=== PATIENT | female | born 1960 | race Hispanic/Latino ===

== ENCOUNTER 2017-09-07 14:32 | Emergency (ER) | payer OTHER ==
[2017-09-07] MEDS ORDERED: ONDANSETRON HCL 4 MG/2 ML VIAL ONE (15:07)
[2017-09-07] MEDS ORDERED: SODIUM CHLORIDE 0.9% 1000ML 1,000 ML IV ONE (15:07)
[2017-09-07 15:42] LABS: BASOPHILS % (AUTO) 0.9 % (0.0-5.0); EOSINOPHILS % (AUTO) 0.3 % (0.0-8.0); HEMATOCRIT 41.7 % (36-48); LYMPHOCYTES % (AUTO) 21.4 % (21.0-51.0); MEAN CORPUSCULAR HEMOGLOBIN 29.6 pg (27.0-33.0); MEAN CORPUSCULAR HGB CONC 34.4 g/dL (32.0-36.0); MEAN CORPUSCULAR VOLUME 86.2 fL (79-99); MONOCYTES % (AUTO) 10.3 % (3.0-13.0); NEUTROPHILS % (AUTO) 67.1 % (40.0-77.0); NUCLEATED RED BLOOD CELLS 0.1 % (0.0-0.19); PLATELET COUNT (AUTO) 175 K/uL (130-400); RED BLOOD CELL COUNT(AUTO) 4.84 MIL/uL (4.00-5.50); RED CELL DISTRIBUTION WIDTH 13.5 % (11.0-15.5); WHITE BLOOD COUNT (AUTO) 5.8 K/uL (4.8-10.8)
[2017-09-07 15:51] LABS: CREATININE 0.9 mg/dL (0.5-1.5); POTASSIUM 3.7 mmol/L (3.5-5.1)
[2017-09-07] MEDS ORDERED: OSELTAMIVIR PHOSPHATE 75 MG CAP ONE (16:17)
[2018-01-31] MEDS ORDERED: ARTHRITIS TYLENOL (16:12)
== END 2017-09-07 16:43 | disposition home or self-care (01) ==
LOC: EDH 14:32
DX: J10.1 Influenza due to other identified influenza virus with other respiratory manifestations (principal); R50.81 Fever presenting with conditions classified elsewhere; R11.2 Nausea with vomiting, unspecified
CPT/HCPCS: 36415; 80048; 85025; 87804 ×2; 96374; 99284; J2405; J7030

== ENCOUNTER 2017-10-17 12:40 | Emergency (ER) | payer OTHER ==
[2018-01-31] MEDS ORDERED: ARTHRITIS TYLENOL (16:12)
== END 2017-10-17 14:38 | disposition home or self-care (01) ==
LOC: EDH 12:40
DX: S80.01XA Contusion of right knee, initial encounter (principal); Z98.890 Other specified postprocedural states; Z87.891 Personal history of nicotine dependence; W01.0XXA Fall on same level from slipping, tripping and stumbling without subsequent striking against object, initial encounter; Y93.01 Activity, walking, marching and hiking; Y92.89 Other specified places as the place of occurrence of the external cause; Y99.8 Other external cause status
CPT/HCPCS: 73562

== ENCOUNTER → 2018-01-17 | Outpatient (CLI) | payer OTHER ==
[~2018-01-17] VITALS: Ht 142.2 cm; Wt 90.7 kg
[~2018-01-17] MED LIST: ARTHRITIS TYLENOL; ASPI-1012 PO; HYDR-309 PO; REGADENOSON 0.4 MG/5 ML PF SYG IVP SCH
== END | disposition home or self-care (01) ==
LOC: SHCH 08:57
PROVIDERS: ATTEND Internal Medicine Cardiovascular Disease
DX: R06.00 Dyspnea, unspecified (principal); F41.9 Anxiety disorder, unspecified
CPT/HCPCS: 78452; 93017; 96374; A9500 ×2; J2785

== ENCOUNTER 2018-02-03 10:29 | Inpatient (IN) | payer OTHER ==
[2018-01-31 15:13] VITALS: BP 186/98
[2018-01-31 15:45] LABS: APPEARANCE,URINE Cloudy (CLEAR); BILIRUBIN,URINE Small (NEGATIVE); COLOR,URINE Dark Yellow (YELLOW); GLUCOSE, URINE (UA) Negative (NEGATIVE); KETONES,URINE Negative (NEGATIVE); LEUKOCYTE ESTERASE ,URINE Negative (NEGATIVE); NITRATE,URINE Negative (NEGATIVE); OCCULT BLOOD,URINE Negative (NEGATIVE); PROTEIN,URINE Trace (NEGATIVE)
[2018-01-31 15:45] LABS: EOSINOPHILS % (AUTO) 2.1 % (0.0-8.0); HEMATOCRIT 41.7 % (36-48); LYMPHOCYTES % (AUTO) 26.9 % (21.0-51.0); MEAN CORPUSCULAR HEMOGLOBIN 29.5 pg (27.0-33.0); MEAN CORPUSCULAR HGB CONC 34.1 g/dL (32.0-36.0); MEAN CORPUSCULAR VOLUME 86.6 fL (79-99); PLATELET COUNT (AUTO) 211 K/uL (130-400); RED BLOOD CELL COUNT(AUTO) 4.82 MIL/uL (4.00-5.50); RED CELL DISTRIBUTION WIDTH 13.3 % (11.0-15.5); WHITE BLOOD COUNT (AUTO) 7.7 K/uL (4.8-10.8)
[2018-01-31 15:53] LABS: CREATININE 0.8 mg/dL (0.5-1.5); POTASSIUM 4.2 mmol/L (3.5-5.1)
[2018-01-31 15:55] LABS: BACTERIA,URINE Few /HPF (None Seen); MUCUS,URINE Few LPF (None Seen); RBC,URINE None Seen /HPF (0-1); WBC,URINE 0-1 /HPF (0-1)
[2018-01-31 16:21] LABS: INR 1.02 (0.85-1.15); PARTIAL THROMBOPLASTIN TIME 26.9 SEC (26.3-35.5); PROTHROMBIN TIME 10.7 SEC (9.6-11.6)
[2018-01-31] MEDS: CEFAZOLIN SODIUM 1 GM VIAL IVP SCH (17:00)
[~2018-02-03] VITALS: Ht 147.3 cm; Wt 91.7 kg
[2018-02-03] VITALS (20 sets, daily range): BP systolic 116–189; BP diastolic 64–105
[~2018-02-03 10:29] MED LIST changes: -ASPI-1012 PO; -HYDR-309 PO; -REGADENOSON 0.4 MG/5 ML PF SYG IVP SCH
[2018-02-03] MEDS ORDERED: LACTATED RINGERS 1000ML 1,000 ML IV ONE (10:53)
[2018-02-03] MEDS ORDERED: EPINEPHRINE 1 MG/ML AMPULE ONE (13:13)
[2018-02-03] MEDS ORDERED: BUPIVACAINE/PF 0.25% 30ML VIAL IJ ONE (13:13)
[2018-02-03] MEDS ORDERED: CEFAZOLIN SODIUM 1 GM VIAL ONE (13:13)
[2018-02-03] MEDS ORDERED: TRANEXAMIC ACID 1000MG/10ML IV ONE (13:14)
[2018-02-03] MEDS ORDERED: METOCLOPRAMIDE 10 MG/2 ML VIAL ONE (13:57)
[2018-02-03] MEDS ORDERED: CELECOXIB 200 MG CAP ONE (13:58)
[2018-02-03] MEDS ORDERED: ACETAMINOPHEN EXTRA STRENGTH 500 MG TABLET ONE (13:58)
[2018-02-03] MEDS ORDERED: OXYCODONE HCL 10 MG TAB.SR.12H PO ONE (13:58)
[2018-02-03] MEDS ORDERED: KETOROLAC TROMETHAMINE 15MG/ML ONE (13:58)
[2018-02-03] MEDS ORDERED: MIDAZOLAM HCL 1 MG/ML 2ML VIAL ONE (14:41)
[2018-02-03] MEDS ORDERED: ONDANSETRON HCL 4 MG/2 ML VIAL ONE (14:41)
[2018-02-03] MEDS ORDERED: NEOSTIGMINE 5MG/5ML SYR IV ONE (14:41)
[2018-02-03] MEDS ORDERED: PROPOFOL 10 MG/ML 20ML VIAL IV ONE (14:41)
[2018-02-03] MEDS ORDERED: DEXAMETHASONE SOD PHOSPHATE 10MG/ML 1ML VIAL ONE (14:41)
[2018-02-03] MEDS ORDERED: LIDOCAINE PF 2% 5ML ABBOJECT ONE (14:41)
[2018-02-03] MEDS ORDERED: GLYCOPYRROLATE 0.2 MG/ML 5 ML VIAL ONE (14:41)
[2018-02-03] MEDS ORDERED: FENTANYL CITRATE PF 50 MCG/1 ML 2ML VIAL ONE (14:42)
[2018-02-03] MEDS ORDERED: ROCURONIUM BROMIDE 10MG/1ML 5ML VL ONE (14:46)
[2018-02-03] MEDS: CEFAZOLIN SODIUM 1 GM VIAL IVP SCH ×2 (15:20→21:59)
[2018-02-03] MEDS ORDERED: FENTANYL CITRATE PF 50 MCG/1 ML 5ML AMP IV ONE (15:36)
[2018-02-03] MEDS ORDERED: METOPROLOL TARTRATE 1 MG/ML 5ML VIAL IV ONE (16:05)
[2018-02-03] MEDS ORDERED: OXYCODONE HCL 5 MG TAB PO PRN (17:00)
[2018-02-03] MEDS ORDERED: FERROUS FUMARATE 324 MG TABLET PO PRN (17:00)
[2018-02-03] MEDS ORDERED: CALCIUM CARBONATE 500 MG TABLET PO PRN (17:00)
[2018-02-03] MEDS ORDERED: POTASSIUM CHLORIDE 20 MEQ ERTAB PO PRN (17:00)
[2018-02-03] MEDS ORDERED: POTASSIUM CHLORIDE 10% ELIXIR 20 MEQ/15 ML UDCUP PO PRN (17:00)
[2018-02-03] MEDS ORDERED: POTASSIUM CHLORIDE 20MEQ/100ML 100 ML IV PRN (17:00)
[2018-02-03] MEDS ORDERED: KETOROLAC TROMETHAMINE 15MG/ML IV PRN (17:00)
[2018-02-03] MEDS ORDERED: ONDANSETRON HCL 4 MG/2 ML VIAL IVP PRN (17:00)
[2018-02-03] MEDS ORDERED: TEMAZEPAM 15 MG CAPSULE PO PRN (17:00)
[2018-02-03] MEDS ORDERED: LIDOCAINE HCL-MPF 1% 2ML VIAL IVP PRN (17:00)
[2018-02-03] MEDS ORDERED: TRAMADOL HCL 50 MG TABLET PO PRN (17:00)
[2018-02-03] MEDS ORDERED: DiphenhydrAMINE HCL 50 MG/ML VIAL IVP PRN (17:00)
[2018-02-03] MEDS ORDERED: HYDRALAZINE HCL 20 MG/ML VIAL ONE (17:33)
[2018-02-03] MEDS: PREGABALIN 25 MG CAP PO SCH (19:38)
[2018-02-03] MEDS: FAMOTIDINE 20MG TAB 20 MG TAB PO SCH (19:38)
[2018-02-03] MEDS: ACETAMINOPHEN EXTRA STRENGTH 500 MG TABLET PO SCH (19:38)
[2018-02-03] MEDS: CELECOXIB 200 MG CAP PO SCH (19:38)
[2018-02-03] MEDS: ASPIRIN 325 MG TABLET PO SCH (19:38)
[2018-02-03] MEDS: SODIUM CHLORIDE 0.9% 1000ML 1,000 ML IV SCH (19:51)
[2018-02-03] MEDS ORDERED: CEFAZOLIN 2GM / 50 ML 50 ML IV SCH (22:00)
[2018-02-04] VITALS: BP 143/86
[2018-02-04] MEDS: ACETAMINOPHEN EXTRA STRENGTH 500 MG TABLET PO SCH ×3 (01:00→17:03)
[2018-02-04] MEDS: SODIUM CHLORIDE 0.9% 1000ML 1,000 ML IV SCH ×2 (02:04→12:52)
[2018-02-04 04:01] VITALS: BP 186/92
[2018-02-04 05:06] LABS: HEMATOCRIT 37.5 % (36-48); MEAN CORPUSCULAR HEMOGLOBIN 29.5 pg (27.0-33.0); MEAN CORPUSCULAR HGB CONC 34.1 g/dL (32.0-36.0); MEAN CORPUSCULAR VOLUME 86.5 fL (79-99); PLATELET COUNT (AUTO) 203 K/uL (130-400); RED BLOOD CELL COUNT(AUTO) 4.34 MIL/uL (4.00-5.50); RED CELL DISTRIBUTION WIDTH 13.4 % (11.0-15.5); WHITE BLOOD COUNT (AUTO) 17.9 K/uL (4.8-10.8)
[2018-02-04] MEDS: CEFAZOLIN SODIUM 1 GM VIAL IVP SCH (05:13)
[2018-02-04 05:18] LABS: CREATININE 0.8 mg/dL (0.5-1.5); POTASSIUM 4.4 mmol/L (3.5-5.1)
[2018-02-04] MEDS: OXYCODONE HCL 5 MG TAB PO PRN ×3 (08:00→15:08)
[2018-02-04 08:01] VITALS: BP 185/79
[2018-02-04] MEDS: PREGABALIN 25 MG CAP PO SCH ×2 (08:08→19:26)
[2018-02-04] MEDS: FAMOTIDINE 20MG TAB 20 MG TAB PO SCH ×2 (08:09→19:26)
[2018-02-04] MEDS: CELECOXIB 200 MG CAP PO SCH ×2 (08:09→19:26)
[2018-02-04] MEDS: ASPIRIN 325 MG TABLET PO SCH ×2 (08:09→19:26)
[2018-02-04] MEDS: POLYETHYLENE GLYCOL 3350 17 GM POWD.PACK PO SCH (09:24)
[2018-02-04 12:22] VITALS: BP 158/87
[2018-02-04 16:36] VITALS: BP 151/74
[2018-02-04 20:03] VITALS: BP 148/77
[2018-02-05] MEDS: ACETAMINOPHEN EXTRA STRENGTH 500 MG TABLET PO SCH ×3 (00:12→17:04)
[2018-02-05 00:43] VITALS: BP 148/77
[2018-02-05 08:54] VITALS: BP 162/92
[2018-02-05] MEDS: ASPIRIN 325 MG TABLET PO SCH (09:00)
[2018-02-05] MEDS: POLYETHYLENE GLYCOL 3350 17 GM POWD.PACK PO SCH (09:00)
[2018-02-05] MEDS: PREGABALIN 25 MG CAP PO SCH (09:00)
[2018-02-05] MEDS: CELECOXIB 200 MG CAP PO SCH (09:00)
[2018-02-05] MEDS: FAMOTIDINE 20MG TAB 20 MG TAB PO SCH (09:00)
[2018-02-05 10:59] VITALS: BP 160/80
[2018-02-05 15:48] VITALS: BP 169/81
[2018-02-05] MEDS ORDERED: HYDR-309 PO (18:39)
[2018-02-05] MEDS ORDERED: ASPI-1012 PO (18:39)
[2018-02-06] MEDS ORDERED: BISACODYL 10 MG SUPP.RECT RC PRN (17:00)
== END 2018-02-05 19:25 | disposition home health service (06) | DRG 470 ==
LOC: DAHIP 10:29 → EDSTATUS 12:30 → 4AH 17:23
PROVIDERS: ADMIT Orthopaedic Surgery; ATTEND Orthopaedic Surgery
PROC: 0SRC0J9 Replacement of Right Knee Joint with Synthetic Substitute, Cemented, Open Approach (ICD-10-PCS; principal; 2018-02-03 14:55)
DX: M17.11 Unilateral primary osteoarthritis, right knee (principal); Z68.41 Body mass index [BMI] 40.0-44.9, adult; E66.01 Morbid (severe) obesity due to excess calories; G89.29 Other chronic pain
CPT/HCPCS: 36415; 80048; 81001; 85025; 85027; 85610; 85730; 88305; 88311; 96374; 96375; A4218; J0171; J0360; J0690; J1100; J1885; J2001; J2250; J2405; J2704; J2710; J2765; J3010; J3490; J7030; J7120

== ENCOUNTER 2021-02-15 22:55 | Emergency (ER) | payer OTHER ==
[~2021-02-15] VITALS: Ht 149.9 cm; Wt 86.6 kg
[~2021-02-15 22:55] MED LIST changes: +ASPI-1012 PO; +HYDR-4457 PO
[2021-02-15 23:48] VITALS: BP 150/102
[2021-02-16] MEDS ORDERED: MECLIZINE HCL 25 MG TABLET PO ONE (00:30)
[2021-02-16] MEDS ORDERED: ONDANSETRON ODT 4MG TAB SL ONE (00:30)
[2021-02-16 00:46] LABS: APPEARANCE,URINE Clear (CLEAR); BILIRUBIN,URINE Negative (NEGATIVE); COLOR,URINE Yellow (YELLOW); GLUCOSE, URINE (UA) Negative (NEGATIVE); KETONES,URINE Negative (NEGATIVE); LEUKOCYTE ESTERASE ,URINE Negative (NEGATIVE); NITRATE,URINE Negative (NEGATIVE); OCCULT BLOOD,URINE Nonhemolyzed Trace (NEGATIVE); PROTEIN,URINE POS 1+ mg/dL (NEGATIVE)
[2021-02-16 01:01] LABS: BACTERIA,URINE Rare /HPF (None Seen); SQUAMOUS EPITHELIAL CELL,UR 0-2 /HPF (0-2); WBC,URINE 0-1 /HPF (0-1)
[2021-02-16 01:38] LABS: BASOPHILS % (AUTO) 0.6 % (0.0-5.0); EOSINOPHILS % (AUTO) 0.6 % (0.0-8.0); HEMATOCRIT 43.8 % (36-48); LYMPHOCYTES % (AUTO) 9.2 % (21.0-51.0); MEAN CORPUSCULAR HEMOGLOBIN 29.2 pg (27.0-33.0); MEAN CORPUSCULAR VOLUME 91.4 fL (79-99); MONOCYTES % (AUTO) 5.9 % (3.0-13.0); NEUTROPHILS % (AUTO) 82.8 % (40.0-77.0); PLATELET COUNT (AUTO) 227 K/uL (130-400); RED BLOOD CELL COUNT(AUTO) 4.79 MIL/uL (4.00-5.50); RED CELL DISTRIBUTION WIDTH 14.3 % (11.0-15.5); WHITE BLOOD COUNT (AUTO) 19.7 K/uL (4.8-10.8)
[2021-02-16 01:54] LABS: CREATININE 1.1 mg/dL (0.5-1.5); POTASSIUM 4.2 mmol/L (3.5-5.1)
[2021-02-16 02:05] LABS: ALBUMIN 3.6 g/dL (3.5-5.0); BILIRUBIN,TOTAL 0.7 mg/dL (0.2-1.0); TOTAL PROTEIN, SERUM 7.2 g/dL (6.0-8.3)
[2021-02-16 02:46] VITALS: BP 180/83
[2021-02-16 03:51] VITALS: BP 148/72
[2021-02-16] MEDS ORDERED: ASPI-1005 PO (05:01)
[2021-02-16] MEDS ORDERED: MECL-226 PO (05:01)
[2021-02-16 05:04] VITALS: BP 141/76
== END 2021-02-16 05:12 | disposition home or self-care (01) ==
LOC: EDH 23:16
DX: H81.10 Benign paroxysmal vertigo, unspecified ear (principal); D72.829 Elevated white blood cell count, unspecified; R94.5 Abnormal results of liver function studies; Z79.82 Long term (current) use of aspirin; Z79.899 Other long term (current) drug therapy; Z98.890 Other specified postprocedural states
CPT/HCPCS: 36415; 70450; 80053; 81001; 82550; 83690; 84484; 85025; 93005

== ENCOUNTER 2025-04-03 08:25 | Emergency (ER) | payer OTHER ==
[~2025-04-03] VITALS: Ht 149.9 cm; Wt 90.7 kg
[~2025-04-03 08:25] MED LIST changes: +ASPI-1005 PO; +MECL-226 PO
[2025-04-03 08:36] VITALS: TEMP 97.9
--- NOTE | 2025-04-03 08:47 | EKG ---
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
[2025-04-03 09:02] LABS: IMMATURE GRANULOCYTE ABSOLUTE 0.28 K/uL (0-1); NUCLEATED RED BLOOD CELLS 0.0 % (0.0-0.19); PLATELET COUNT (AUTO) 210 K/uL (130-400); RED BLOOD CELL COUNT(AUTO) 4.18 MIL/uL (4.00-5.50); RED CELL DISTRIBUTION WIDTH 19.9 % (11.0-15.5); WHITE BLOOD COUNT (AUTO) 11.4 K/uL (4.8-10.8)
[2025-04-03 09:22] LABS: ASPARTATE AMINOTRANSFERASE 20.0 U/L (10-37); CREATINE KINASE, TOTAL 33.0 U/L (21-232); CREATININE 1.0 mg/dL (0.5-1.0); GLOMERULAR FILTR. RATE CALC 63.0 mL/min (>90); GLUCOSE,RANDOM 143.0 mg/dL (70-105); SODIUM SERUM 143.0 mmol/L (136-145); TOTAL PROTEIN, SERUM 6.3 g/dL (6.0-8.3); UREA NITROGEN, BLOOD 21.0 mg/dL (7-18)
[2025-04-03 09:57] VITALS: BP 167/77; PULSE 77; RESP 20; O2SAT 95
[2025-04-03 10:15] LABS: APPEARANCE,URINE TURBID (CLEAR); GLUCOSE, URINE (UA) NEGATIVE (NEGATIVE); LEUKOCYTE ESTERASE ,URINE 25 Leu/uL (NEGATIVE); NITRATE,URINE NEGATIVE (NEGATIVE); OCCULT BLOOD,URINE NEGATIVE (NEGATIVE)
[2025-04-03 10:20] LABS: ADD UA MICROSCOPIC YES
[2025-04-03 10:23] LABS: SQUAMOUS EPITHELIAL CELL,UR FEW /HPF (0-2)
--- NOTE | 2025-04-03 10:38 | HMCIMG ---
CHEST 1VW REASON: dyspnea COMPARISON: None. FINDINGS: Single view of the chest was obtained. Lungs are clear. There is cardiomegaly with left ventricular contour.. There is no pulmonary vascular congestion. Mediastinum and bony thorax appear unremarkable. IMPRESSION: 1. Cardiomegaly with left ventricular contour 2. No evidence of airspace consolidation or pulmonary venous congestion.
--- NOTE | 2025-04-03 10:42 | ERN ---
General Chief Complaint: Lower Extremity Pain/Injury Stated Complaint: SWELLING TO EXTREMITIES Time Seen by MD: 08:27 History of Present Illness Initial Comments 64F, hx HTN, DM, DLD, class III obesity, presents for 1 week of exertional dyspnea, fatigue, and swollen legs. Patient reports that she has been moving houses over the last week. She reports that while moving she gets very fatigued. She is unable to do more than a few boxes with a out getting dyspneic. She reports that her legs that is swollen up but the swelling has since resolved. She went to her PCP for further evaluation, she had lab work done, but she is not know the results. She presents today because she said she is frustrated that she is unable to get as much work done in his usual. She is able to sleep at night lying flat. She has no chest pains. No fevers. No other systemic complaints. Allergies: Coded Allergies: No Known Drug Allergies (Unverified Allergy, Unknown, 01/16/18) Home Meds Active Scripts Meclizine HCl (Meclizine HCl) 12.5 Mg Tablet, 25 MG PO TID PRN for DIZZINESS for 10 Days, #30 TAB Prov:KOSTA GONZALEZ MD 02/16/21 Aspirin (ASPIRIN 81MG CHEW TAB) 81 Mg Tab.chew, 81 MG PO DAILY for CIRCULATION for 30 Days, #30 TAB.CHEW Prov:KOSTA GONZALEZ MD 02/16/21 Hydrocodone/Acetaminophen ([place] 5-325 Tablet) 1 Each Tablet, 1-2 EACH PO Q6H PRN for PAIN, #90 TAB Prov:DAQUAN BATES MD 02/05/18 Aspirin (ASPIRIN) 325 Mg Tablet, 325 MG PO BID, #40 TAB Prov:DAQUAN BATES MD 02/05/18 Reported Medications [Arthritis Tylenol] No Conflict Check, 2 CAP AD PRN for PAIN LEVEL 1 TO 5 01/31/18 Past Medical History Past Medical History: No Pertinent History Past Surgical History: Other Surgical History Other: RT KNEE SURGERY Family History Family History: HTN Social History Social History: Lives with family ROS Dictation CONSTITUTIONAL: Fatigue HEAD/FACE: No signs of trauma. EENT: No eye pain, no blurred vision, no tearing, no double vision, no ear pain, no ear discharge, no nose pain, no nasal congestion, no throat pain, no throat swelling, no mouth pain. RESPIRATORY: No cough, no orthopnea, no SOB, no stridor, no wheezing. CARDIOVASCULAR: Dyspnea GASTROINTESTINAL/ABDOMINAL: No abdominal pain, no constipation, no diarrhea, no nausea, no vomiting. GENITOURINARY: No abnormal discharge, no dysuria, no frequent urination, no hematuria. No complaints of pain in the genitals. MUSCULOSKELETAL: No back pain, no gout, no joint pain, no joint swelling, no muscle pain, no muscle stiffness, no neck pain. INTEGUMENTARY: No change in color, no change in hair/nails, no dryness, no lesion, no lumps, no rash. NEUROLOGICAL/PSYCH: No anxiety, not depressed, no emotional problem, no headache, no numbness, no pre-existing deficit, no history of seizures, no tremors, no weakness. HEMATOLOGIC/LYMPHATIC: Not anemic, no history of blood clots, no apparent bleeding, no bruising, glands not swollen. All Systems Negative, Except as Noted. Physical Exam Physical Exam Dictation VITAL SIGNS: Reviewed. GENERAL APPEARANCE: Alert, oriented x3, no acute distress, obese. HEAD AND FACE: Non-traumatic. EYES: PERRL, pink conjunctivas, eyelid no trauma, anterior chamber clear. EARS: Pinnas intact and no signs of trauma or erythema. Ear canals clear and no discharge. TMs no erythema. NOSE: No discharge, no bleeding. OROPHARYNX: Mouth normal, teeth no caries, tongue pink. Pharynx clear, no erythema. Tonsils no exudates, no abscesses noted. Mucous membrane moist. NECK: Supple, non-tender, no thyromegaly, no masses, no JVD, no bruits. BREAST: Deferred. CHEST: No tenderness, no crepitus, no paradoxical movement, no retractions. LUNGS: Clear, well-ventilated, symmetric, no rales, no wheezing, no rhonchi, no stridor, good breath sounds bilaterally. HEART: Regular rate, regular rhythm, no murmur, no gallops. VASCULAR: No peripheral edema. ABDOMEN: Soft, positive bowel sounds, nondistended, no guarding, nontender, no rebound, no masses no hepatomegaly, no splenomegaly, no Lowe's sign, no hernias. RECTAL: Deferred. GENITAL: Deferred. NEUROLOGICAL: Normal speech, gross motor function intact, gross sensory function intact. MUSCULOSKELETAL: Neck nontender, full range of motion, back nontender, full range of motion. EXTREMITIES: Nontender, full range of motion. SKIN: Color pink, dry, no turgor, no rash, no lacerations, no abrasions, no contusions. LYMPHATICS: Deferred. Results Laboratory and Microbiology Lab and Micro Result Laboratory Tests Test 04/03/25 08:51 04/03/25 09:50 White Blood Count 11.4 K/uL (4.8-10.8) H Red Blood Count 4.18 MIL/uL (4.00-5.50) Hemoglobin 10.6 g/dL (12.0-16.0) L Hematocrit 35.2 % (36-48) L Mean Corpuscular Volume 84.2 fL (79-99) Mean Corpuscular Hemoglobin 25.4 pg (27.0-33.0) L Mean Corpuscular Hemoglobin Concent 30.1 g/dL (32.0-36.0) L Red Cell Distribution Width 19.9 % (11.0-15.5) H Platelet Count 210 K/uL (130-400) Mean Platelet Volume 9.9 fL (7.5-10.5) Immature Granulocyte % (Auto) 2.5 % (0-1) H Neutrophils (%) (Auto) 67.7 % (40.0-77.0) Lymphocytes (%) (Auto) 17.5 % (21.0-51.0) L Monocytes (%) (Auto) 7.1 % (3.0-13.0) Eosinophils (%) (Auto) 4.6 % (0.0-8.0) Basophils (%) (Auto) 0.6 % (0.0-5.0) Neutrophils # (Auto) 7.7 K/uL (1.8-7.7) Lymphocytes # (Auto) 2.0 K/uL (1.0-4.8) Monocytes # (Auto) 0.8 K/uL (0.1-1.0) Eosinophils # (Auto) 0.52 K/uL (0.00-0.70) Basophils # (Auto) 0.07 K/uL (0.00-0.20) Absolute Immature Granulocyte (auto 0.28 K/uL (0-1) Nucleated Red Blood Cells 0.0 % (0.0-0.19) Red Blood Cell Morphology See comments Sodium Level 143 mmol/L (136-145) Potassium Level 3.5 mmol/L (3.5-5.1) Chloride Level 107 mmol/L (101-111) Carbon Dioxide Level 29 mmol/L (21-32) Blood Urea Nitrogen 21 mg/dL (7-18) H Creatinine 1.0 mg/dL (0.5-1.0) Glomerular Filtration Rate Calc 63 mL/min (>90) Random Glucose 143 mg/dL (70-105) H Total Calcium 8.7 mg/dL (8.5-10.1) Total Bilirubin 0.6 mg/dL (0.2-1.0) Direct Bilirubin 0.2 mg/dL (0.0-0.3) Aspartate Amino Transf (AST/SGOT) 20 U/L (10-37) Alanine Aminotransferase (ALT/SGPT) 55 U/L (12-78) Alkaline Phosphatase 107 U/L (50-136) Total Creatine Kinase 33 U/L (21-232) # Troponin I High Sensitivity 15.7 ng/L (4-50) B-Type Natriuretic Peptide 76 pg/mL (0-100) Total Protein 6.3 g/dL (6.0-8.3) Albumin 2.6 g/dL (3.5-5.0) L Thyroid Stimulating Hormone (TSH) 4.67 uIU/mL (0.36-3.74) H Urine Color DARK YELLOW (YELLOW) Urine Appearance TURBID (CLEAR) Urine pH 5.5 (5.0-8.0) Urine Specific [place] 1.028 (1.001-1.031) Urine Protein 30 mg/dL (NEGATIVE) H Urine Glucose (UA) NEGATIVE mg/dL (NEGATIVE) Urine Ketones NEGATIVE mg/dL (NEGATIVE) Urine Occult Blood NEGATIVE (NEGATIVE) Urine Nitrate NEGATIVE (NEGATIVE) Urine Bilirubin NEGATIVE mg/dL (NEGATIVE) Urine Urobilinogen 2.0 mg/dL (0.2-1.0) H Urine Leukocyte Esterase 25 [place]/uL (NEGATIVE) H Urine RBC 2-5 /HPF (0-1) H Urine WBC 6-10 /HPF (0-1) H Urine Squamous Epithelial Cells FEW /HPF (0-2) Urine Amorphous Crystals (Auto) RARE /LPF (None Seen) Urine Bacteria RARE /HPF (None Seen) MDM CC: Dyspnea on exertion, fatigue, leg swelling Historian: Patient Comorbidities: Morbid obesity, diabetes, dyslipidemia, hypertension Limitations by social determinants of health: None Differential diagnosis: Heart failure, arrhythmia, liver disease, kidney disease, pulmonary hypertension, arrhythmia, OHS, thyroid dysfunction, anemia, other Vital signs show hypertension 165/75, pulse 97, otherwise unremarkable EKG shows sinus rhythm, rate of 95, normal axis, good R-wave progression, intervals are stable. Meets LVH criteria by aVL. No STEMI. Independently interpreted by me. Chest x-ray shows borderline cardiomegaly no pleural effusions no focal infiltrates no major vascular congestion. Independently interpreted by me. Labs (independenly interpreted by me): CBC WBC 11.4K, no shift, no bands. Normocytic anemia 10.6hg, 35.2hct. Platelets stable. BMP stable, LFTs stable, gl ucose stable. Troponin WNL. Albumin low 2.6. TSH mildly elevated 4.67. Urinalysis shows high-protein. There is some leuk esterase but no real signs of infection. BNP normal. I do not see any life threats at this time. She does have chronic hypertension with LVH, she is also obese, may have CORI. There was no signs of heart failure on clinical exam. Kidneys and liver appear intact. Urinalysis does show some protein. TSH was also mildly elevated maybe hypothyroid. There was no indication for admission. She can likely be worked has been outpatient. She would benefit from an echo possibly a sleep study and further thyroid studies. ED Course Orders Procedure Category Date Status Time Cardiac Panel LAB 04/03/25 Complete 08:41 Cbc With Differential LAB 04/03/25 Complete 08:41 Basic Metabolic Panel LAB 04/03/25 Complete 08:41 Urinalysis Profile LAB 04/03/25 Complete 08:41 Hepatic Function Panel LAB 04/03/25 Complete 08:41 12 Lead Ekg Tracing- EKG 04/03/25 Complete Technical 08:41 Chest 1vw RAD 04/03/25 Resulted 08:41 Thyroid Stimulating LAB 04/03/25 Complete Hormone 08:44 B-Type Natriuretic LAB 04/03/25 Complete Peptide 10:00 Culture Urine ELIEL 04/03/25 Logged 10:33 Vital Signs Date Time Temp Pulse Resp B/P (MAP) Pulse Ox O2 Delivery O2 Flow Rate FiO2 04/03/25 09:57 77 20 167/77 95 Room Air* 0 21 04/03/25 08:36 97.9 103 20 167/71 99 Room Air* 0 21 04/03/25 08:26 97.5 97 18 165/75 94 Room Air DX & DISP Disposition: Discharge Departure Impression: Primary Impression: Hypertension, essential Additional Impressions: Left ventricular hypertrophy by electrocardiogram, Normocytic anemia, Proteinuria, Hypothyroidism Condition: Stable Additional Instructions: There are no life-threatening causes or emergent causes of your symptoms here today. Your blood pressure was elevated here in the emergency department. You appear to have chronic hypertension. Continue with your home blood pressure medication s. Talk to your primary doctor about hypertension. Your EKG shows left ventricular hypertrophy. This is likely due to longstanding hypertension. Your CBC shows anemia, hemoglobin at 10.6. This may cause fatigue. Discussed this with her primary doctor. You may need further studies. Your chemistry panel is unremarkable. Your liver studies are unremarkable. Your cardiac markers (CK, troponin, and BNP) are normal. Your thyroid study (TSH) is mildly elevated. You may need further studies or treatment. Discussed this with your doctor. Your urinalysis shows protein. This may be due to diabetes, prolonged hypertension, or a kidney disorder. Please discuss this with the primary doctor. You likely need further studies. Your chest x-ray shows a borderline enlarged heart. Please discuss this with the primary doctor. You may need further studies. There are many possible causes of your symptoms. You need further outpatient workup with her primary doctor. You would likely benefit from a cardiac eval uation including echocardiogram. You may also need a sleep study. Please bring this paperwork with you to your primary doctor. Please return to the emergency department if you have any concerns. Referrals: HANNA SELF DO (PCP) OPHELIA CRUZ DO Apr 03, 2025 10:42
== END 2025-04-03 10:58 | disposition home or self-care (01) ==
LOC: EDH 08:25
DX: D64.9 Anemia, unspecified (principal); R80.9 Proteinuria, unspecified; E03.9 Hypothyroidism, unspecified; I11.9 Hypertensive heart disease without heart failure; E78.5 Hyperlipidemia, unspecified; E11.9 Type 2 diabetes mellitus without complications; E66.813 Obesity, class 3; Z79.82 Long term (current) use of aspirin
CPT/HCPCS: 36415; 71045; 80048; 80076; 81001; 82550; 83880; 84443; 84484; 85025; 87086; 93005; 99285